=== PATIENT | male | born 1960 | race Caucasian/White ===

== ENCOUNTER → 2024-08-22 15:10 | Outpatient (REF) | payer OTHER, SELFPAY | LOC: MRI 3T 15:10 | PROVIDERS: ATTENDING PHYSICIAN Internal Medicine | DX: R97.20 Elevated prostate specific antigen [PSA] (principal) | CPT/HCPCS: 72197; A9575 ==

== ENCOUNTER → 2025-06-21 10:19 | Outpatient (REF) | payer OTHER, SELFPAY | LOC: RCS 10:19 | PROVIDERS: ATTENDING PHYSICIAN Internal Medicine Cardiovascular Disease; FAMILY PHYSICIAN Internal Medicine | DX: I42.8 Other cardiomyopathies (principal); I49.3 Ventricular premature depolarization | CPT/HCPCS: 93306 ==